=== PATIENT | female | born 1985 | race African-American/Black ===

== ENCOUNTER 2022-05-16 07:42 | Outpatient (CLI) | payer BC | END 2022-05-16 07:43 | disposition home or self-care (01) | LOC: SCSMRI 07:42 | PROVIDERS: ATTEND Nurse Practitioner Family | DX: M25.561 Pain in right knee (principal); S83.241A Other tear of medial meniscus, current injury, right knee, initial encounter; W10.9XXA Fall (on) (from) unspecified stairs and steps, initial encounter ==

== ENCOUNTER 2024-07-01 07:51 | Outpatient (CLI) | payer BC | END 2024-07-01 07:52 | disposition home or self-care (01) | LOC: BICMAMMO 07:51 | PROVIDERS: ATTEND Nurse Practitioner Family | DX: N63.11 Unspecified lump in the right breast, upper outer quadrant (principal); R59.0 Localized enlarged lymph nodes | CPT/HCPCS: 77066; G0279 ==